=== PATIENT | male | born 1975 | race Caucasian/White ===

== ENCOUNTER → 2018-02-08 10:11 | Outpatient (CLI) | payer OTHER, SELFPAY ==
--- NOTE | 2018-02-08 | DI.MRI.S_ITS ---
PROCEDURE: MR KNEE LT WO CON INDICATIONS: left knee pain TECHNIQUE: Noncontrast sagittal PD fast spin echo and T2 fast spin echo with fat saturation, sagittal 3-D FLASH with fat saturation; coronal T1 spin echo and PD fast spin echo with fat saturation, and axial PD fast spin echo with fat saturation through the knee. COMPARISON: None. FINDINGS: Image quality: Diagnostic. Bones and joint: There is no acute fracture or dislocation. No suspicious osseous lesions are evident. There is a small knee joint effusion. There is an associated moderate-sized August's cyst. Mild heterogeneity of the hyaline articular cartilage is noted within all 3 compartments of the knee. No large cartilaginous defects are evident. Cruciate ligaments: The anterior and posterior cruciate ligaments are intact. Menisci: There is a horizontal tear present involving the body and anterior horn of the lateral meniscus it is predominantly seen involving the periphery; however, extends near the free edge. There is partial-thickness tearing involving the anterior attachment of the lateral meniscus. A very small vertical tear is evident involving the posterior horn of the lateral meniscus near the posterior meniscal root (image 19, series 5). There is degenerative signal identified through the body of the medial meniscus with a possible horizontal tear present. Medial structures: The medial collateral ligament is intact. The semimembranosus tendon insertion is intact. The imaged portions of the pes anserinus tendons are unremarkable. No significant fluid is contained within the pes anserinus bursa. Lateral structures: The popliteal tendon is intact. The lateral collateral ligament proper (fibular collateral ligament) and the proximal tibiofibular ligaments are intact. The distal aspect of the biceps femoris tendon and the iliotibial band are intact. Slight thickening and increased signal of the distal iliotibial band is noted. Anterior structures: The quadriceps and patellar tendons are intact. There is mild edema in the infrapatellar fat pad. IMPRESSION: 1. Horizontal tear of the lateral meniscus that involves the anterior attachment. 2. Degenerative signal of the medial meniscus with a probable horizontal tear along the periphery, as well. 3. Possible mild distal iliotibial band tendinopathy. 4. Small knee joint effusion with an associated moderate August cyst. Dictated by: Eze Mcginnis M.D. on 02/08/2018 at 10:51 Approved by: Eze Mcginnis M.D. on 02/08/2018 at 11:02
== END ==
PROVIDERS: Visit Provider General Practice
DX: M25.562 Pain in left knee (principal); S83.282A Other tear of lateral meniscus, current injury, left knee, initial encounter; M25.462 Effusion, left knee
CPT/HCPCS: 73721

== ENCOUNTER 2018-02-28 13:35 | Emergency (ER) | payer OTHER, SELFPAY ==
[2018-02-28 14:00] VITALS: BP 125/70; PULSE 61; RESP 18; TEMP 37.1; O2SAT 98
--- NOTE | 2018-02-28 15:27 | ED.LOWEXIN ---
HPI - Extremity Injury (Lower) <BRIDGETTE Mccrary - Last Filed: 02/28/18 22:08> General Chief Complaint: Extremity Injury, Lower Stated Complaint: ripped off toenail Time Seen by Provider: 02/28/18 15:29 History of Present Illness HPI Narrative: 42-year-old healthy male here for complaint of left great toenail avulsion. Patient states that he was at the grocery store when his toenail got caught on the edge of a grocery cart ribbon back the toenail. He denies any other injuries. No direct trauma to the toe itself. Patient is ambulatory after the incident. Patient states his tetanus is up-to-date. No other concerns or complaints. Related Data Home Medications Medication Instructions Recorded Confirmed No Known Home Medications 02/28/18 02/28/18 Allergies Allergy/AdvReac Type Severity Reaction Status Date / Time No Known Drug Allergies Allergy Verified 02/28/18 14:43 Review of Systems <BRIDGETTE Mccrary - Last Filed: 02/28/18 22:08> Constitutional Denies chills, Denies fever(s), Denies lethargy and Denies weakness Eyes Denies change in vision, Denies eye discharge, Denies irritation and Denies loss of vision ENT Ears, Nose, Mouth, and Throat: Denies change in voice, Denies neck pain and Denies sore throat Cardiovascular Denies chest pain, Denies irregular heart rhythm, Denies lightheadedness, Denies palpitations, Denies dyspnea, Denies dyspnea on exertion and Denies orthopnea Respiratory Denies cough, Denies dyspnea, Denies dyspnea on exertion and Denies wheezing Gastrointestinal Gastrointestinal: Denies abdominal pain, Denies change in bowel habits, Denies diarrhea, Denies nausea and Denies vomiting Genitourinary Denies hematuria, Denies flank pain, Denies urinary incontinence and Denies urinary urgency Musculoskeletal Denies neck pain Comments: Left great toenail avulsion Neurologic Denies loss of vision and Denies weakness Endocrine Denies palpitations Allergic/Immunologic Denies wheezing Exam <BRIDGETTE Mccrary Last Filed: 02/28/18 22:08> Initial Vital Signs Initial Vital Signs: Vital Signs Temperature 98.7 F 02/28/18 14:00 Pulse Rate 61 02/28/18 14:00 Respiratory Rate 18 02/28/18 14:00 Blood Pressure 125/70 H 02/28/18 14:00 Pulse Oximetry 98 02/28/18 14:00 Const General: cooperative and well developed Nutritional Appearance: well nourished Orientation: alert, awake, oriented x3 and not confused [facility] Mouth: oral mucosae normal and moist mucous membranes Eyes Conjunctivae: conjunctivae normal Sclera: sclerae normal Pupils: PERRL EOM: EOM intact bilaterally Resp Effort & Inspection: normal respiratory effort, able to speak in complete sentences, no respiratory distress and no use of accessory muscles Auscultation: clear to auscultation bilaterally, no rales, no rhonchi and no wheezes Cardio Rate: regular rate Rhythm: regular rhythm Heart Sounds: no click, no gallops, no murmurs and no rubs Pulses: normal peripheral pulses Skin General: no rashes or lesions noted, No jaundice and No petechiae Extrem Other: Partial nail avulsion to left great toe. Medial aspect of the nail of the left great toe has been detached from nail bed and nail fold. Distal half of the nail has been detached from the nail bed. Distal sensation is intact. Distal cap refill less than 2 sec. Full range of motion of the toe. <Trudy Abdullahi DO - Last Filed: 03/01/18 12:26> Initial Vital Signs Initial Vital Signs: Vital Signs Temperature 98.7 F 02/28/18 14:00 Pulse Rate 61 02/28/18 14:00 Respiratory Rate 18 02/28/18 14:00 Blood Pressure 125/70 H 02/28/18 14:00 Pulse Oximetry 98 02/28/18 14:00 Procedures <BRIDGETTE Mccrary - Last Filed: 02/28/18 22:08> Orthopedic Splinting/Casting Injury #1: Side: left Lower Extremity Injury Location: toe (Left great toe nail partial avulsion) Additional Comments: Left great toe digital block was obtained using 5 mL of 1% buffered lidocaine. Toenail area and bed was irrigated with 300 mL of normal saline. Great toenail was removed with no complications. Wound dressed with bacitracin and a dressing. Course <BRIDGETTE Mccrary - Last Filed: 02/28/18 22:08> Vital Signs - 8 hr 02/28/18 16:21 Pulse Rate 56 L Respiratory Rate 12 Blood Pressure [Left Arm] 123/65 H Pulse Oximetry 99 <Trudy Abdullahi DO - Last Filed: 03/01/18 12:26> Vital Signs - 8 hr 02/28/18 16:21 Pulse Rate 56 L Respiratory Rate 12 Blood Pressure [Left Arm] 123/65 H Pulse Oximetry 99 [facility] - Extremity Injury (Lower) <BRIDGETTE Mccrary - Last Filed: 02/28/18 22:08> [facility] Narrative Medical decision making narrative: Partial nail avulsion was removed today in the emergency room with no complications. Patient's tetanus is up-to-date. Wound dressed with bacitracin nonstick gauze and tube gauze. Follow up with primary care provider in the next few for re-evaluation. Use [id number] Tylenol Motrin as needed for any discomfort. For any worsening symptoms return to the emergency room. Discharge Plan Departure Patient Disposition: Home, Self-Care Clinical Impression: Nail avulsion of toe Discharge Date/Time: 02/28/18 16:36 Interventions: ED Discharge Assessment Last Done: 02/28/18 16:35 Instructions: DI for Nail Avulsion Injury Activity Restrictions/Additional Instructions: Left great toe nail was mostly removed by the injury today. Toenail was removed today in the emergency room. Keep initial dressing on clean and dry for the next 24 hr after this timeframe dress wound daily with bacitracin and a dressing. Use [id number] Tylenol and Motrin as needed for any discomfort. Follow up with primary care provider in the next couple of days for re-evaluation. For any worsening symptoms return to the emergency room. Prescriptions: No Action No Known Home Medications RF: 0 Referrals: [facility] [Provider Group] <Trudy Abdullahi DO - Last Filed: 03/01/18 12:26> Cosign ED Attending Tristan Attestation: I was immediately available in the department for consultation. Documentation has been reviewed. I agree with assessment and plan.
[2018-02-28 16:21] VITALS: BP 123/65; PULSE 56; RESP 12; O2SAT 99
== END 2018-02-28 16:36 | disposition home or self-care (01) ==
PROVIDERS: Emergency Provider Nurse Practitioner Family
DX: S91.209A Unspecified open wound of unspecified toe(s) with damage to nail, initial encounter (principal); W20.8XXA Other cause of strike by thrown, projected or falling object, initial encounter
CPT/HCPCS: 11730; 99283

== ENCOUNTER → 2018-03-11 11:45 | Outpatient (CLI) | payer OTHER, SELFPAY ==
--- NOTE | 2018-03-11 | DI.MRI.S_ITS ---
PROCEDURE: MR CERVICAL SPINE WO/W CON INDICATIONS: PARESTHESIA OF SKIN TECHNIQUE: Noncontrast sagittal T1 spin echo and T2 fast spin echo, sagittal STIR, sagittal PD fast spin echo, foraminal oblique sagittal T2 fast spin echo, axial gradient echo or T2 fast spin echo through the cervical spine. After the administration of contrast, sagittal and axial T1 spin echo with fat saturation through the cervical spine. COMPARISON: None. FINDINGS: Image quality: Excellent. Alignment and curvature: There is normal bony alignment. Marrow: Marrow demonstrates normal overall signal. Spinal cord: Visualized spinal cord is normal in size, without white matter lesions. No suspicious intramedullary enhancement. No cerebellar tonsillar herniation. Paraspinous soft tissues: No paravertebral masses or suspicious enhancement. C2-C3: Normal appearance. C3-C4: Mild disc desiccation and minimal diffuse disc bulge. Mild facet hypertrophy bilaterally. Minimal canal stenosis. No foraminal stenosis. C4-C5: Mild disc desiccation and mild diffuse disc bulge. Mild facet hypertrophy bilaterally. Mild canal stenosis. Mild foraminal stenosis bilaterally. C5-C6: Moderate disc height loss and desiccation, as well as mild diffuse disc bulge. Bilateral facet and uncovertebral hypertrophy. Mild canal stenosis. Mild right and moderate left foraminal stenosis. C6-C7: Mild disc height loss and desiccation, as well as mild diffuse disc bulge. Bilateral facet and uncovertebral hypertrophy. Mild canal stenosis. Mild foraminal stenosis bilaterally. C7-T1: Normal appearance. IMPRESSION: 1. Multilevel degenerative disc and facet disease, as well uncovertebral hypertrophy. 2. Mild multilevel canal stenoses. 3. Multilevel foraminal stenoses, worst at C5-C6 on the left, where there is moderate foraminal stenosis present. 4. No evidence of multiple sclerosis. Dictated by: Garrick Main M.D. on 03/11/2018 at 13:42 Approved by: Garrick Main M.D. on 03/11/2018 at 13:45
--- NOTE | 2018-03-11 | DI.MRI.S_ITS ---
PROCEDURE: MR LUMBAR SPINE WO/W CON INDICATIONS: PARESTHESIA OF SKIN TECHNIQUE: Noncontrast sagittal T1 spin echo and T2 fast spin echo, sagittal STIR, axial T1 and T2 fast spin echo through the lumbar spine. In cases with scoliosis, additional coronal T2 fast spin echo may be performed. After the administration of contrast, sagittal and axial T1 spin echo with fat saturation through the lumbar spine. COMPARISON: None. FINDINGS: Image quality: Excellent. Alignment and curvature: No plain films are available for comparison, for numbering purposes. Thus, for the purposes of this examination, 5 lumbar type vertebral bodies will be presumed, as denoted on the montage panel. This should be confirmed and correlated with plain films, prior to any lumbar spinal intervention.There is normal bony alignment. Marrow: Marrow is of normal overall signal. No acute vertebral body compression fractures. No suspicious marrow enhancement. Mild reactive signal within the endplates adjacent to the the L2-L3, L3-L4, and L4-L5 intervertebral discs. Spinal cord: Conus medullaris terminates at the L1-L2 disc space level. Visualized spinal cord demonstrates normal signal, without suspicious enhancement. Paraspinous soft tissues: No paravertebral masses or abnormal enhancement. L1-L2: Normal appearance. L2-L3: Mild disc desiccation and diffuse disc bulge. Mild facet hypertrophy bilaterally. Mild canal stenosis. Mild foraminal stenosis bilaterally. L3-L4: Mild disc desiccation and diffuse disc bulge. Mild facet hypertrophy bilaterally. Mild canal stenosis. Mild foraminal stenosis bilaterally. L4-L5: Mild disc desiccation and diffuse disc bulge with superimposed small central protrusion. Mild bilateral facet hypertrophy. Mild canal stenosis. Mild foraminal stenosis bilaterally. L5-S1: Mild disc desiccation and diffuse disc bulge with superimposed small central protrusion. Mild facet hypertrophy bilaterally. No significant canal stenosis, neuroforaminal stenosis. IMPRESSION: 1. Multilevel degenerative disc and facet disease, causing mild multilevel canal and foraminal stenoses. No neural impingement. Dictated by: Garrick Main M.D. on 03/11/2018 at 14:14 Approved by: Garrick Main M.D. on 03/11/2018 at 14:17
== END ==
PROVIDERS: Visit Provider Student in an Organized Health Care Education/Training Program
DX: M50.31 Other cervical disc degeneration, high cervical region (principal); M48.02 Spinal stenosis, cervical region; R20.2 Paresthesia of skin; M51.36 Other intervertebral disc degeneration, lumbar region; M48.061 Spinal stenosis, lumbar region without neurogenic claudication
CPT/HCPCS: 72156; 72158; A9579